=== PATIENT | male | born 1990 | race Caucasian/White ===

== ENCOUNTER 2022-10-06 15:57 | Observation (INO) ==
[2022-10-06 16:48] LABS: ABS Basophils 0.1 10^3/ul (0-0.2); ABS Lymphocytes 1.9 10^3/ul (1.0-4.8); ABS Monocytes 0.8 10^3/ul (0-0.8); ABS Neutrophils 9.9 10^3/ul (1.5-7.7); Eosinophil % 0.3 %; Hematocrit 45 % (42-52); Hemoglobin 15.1 g/dL (14.0-18.0); Lymphocyte % 15.2 %; Mean Corpuscular HGB Conc 34 g/dL (31-36); Mean Corpuscular Hemoglobin 29 pg (27-31); Mean Corpuscular Volume 87 fL (80-94); Mean Platelet Volume 6.5 fL (7.4-10.4); Platelet Count 330 10^3/uL (150-450); Red Blood Count 5.16 10^6 /uL (4.18-5.48); Red Cell Distribution Width 14 % (10-15); White Blood Count 12.7 10^3/uL (3.5-10.8)
[2022-10-06 17:50] LABS: Albumin 4.4 g/dL (3.2-5.2); Albumin/Globulin Ratio 1.5 (1-3); C Reactive Protein 109.75 mg/L (<8.01); Calcium 9.4 mg/dL (8.6-10.3); Globulin 2.9 g/dL (2-4); Potassium 3.6 mmol/L (3.5-5.0); Total Bilirubin 0.6 mg/dL (0.2-1.0); Total Protein 7.3 g/dL (6.4-8.9); eGFR CKD-EPI 119.5 (>60)
[2022-10-06 18:00] LABS: Urine Appearance Clear; Urine Bilirubin Negative (Negative); Urine Blood Negative (Negative); Urine Color Yellow; Urine Glucose Negative (Negative); Urine Ketones Trace (Negative); Urine Nitrite Negative (Negative); Urine Protein Negative (Negative); Urine Specific Gravity 1.013 (1.002-1.030); Urine Urobilinogen Negative (Negative)
[2022-10-06] MEDS ORDERED: Iohexol 350 (CONTRAST) 500 ML MDV IV ONE (18:23)
[2022-10-06] MEDS ORDERED: Lactated Ringers 1000 ml BAG 1,000 ML IV ONE (19:51)
[2022-10-06] MEDS ORDERED: Piperacillin/Tazobac ADVAN 3.375 GM in NS 0.9% 100 ml BAG 100 ML IV ONE (20:29)
[2022-10-06] MEDS ORDERED: fentaNYL 250 mcg/5 ml 50 MCG/ML 5 ml VIAL (250 MCG) ONE (22:13)
[2022-10-06] MEDS ORDERED: Rocuronium 50 mg VIAL 10 mg/ml 5 ml VIAL (50 mg) ONE (22:13)
[2022-10-06] MEDS ORDERED: Midazolam 2 mg/2 ml VIAL 1 mg/ml 2 ml VIAL (2 mg) ONE (22:13)
[2022-10-06] MEDS ORDERED: Ondansetron 4 mg VIAL 2 MG/ML 2 ml VIAL ONE (22:14)
[2022-10-06] MEDS ORDERED: Dexamethasone IV 4 MG/ML VIAL 1 ml VIAL ONE (22:14)
[2022-10-06] MEDS ORDERED: Lidocaine 2% PF 5 ML VIAL ONE (22:14)
[2022-10-06] MEDS ORDERED: Propofol 10 MG/ML 20 ML BTL ONE ×2 (22:14→23:28)
[2022-10-06] MEDS ORDERED: Sugammadex 500 MG/5 ML 5 ml VIAL IV PUSH ONE (23:37)
[2022-10-06] MEDS ORDERED: Acetaminophen IV 1 GM/100ML 1,000 MG/100 ML BAG IV PRN (23:46)
[2022-10-06] MEDS ORDERED: HYDROmorphone 1 MG/1 ML SYRINGE IV PRN (23:46)
[2022-10-06] MEDS ORDERED: fentaNYL 100 mcg/2 ml 50 MCG/ML VIAL IV PRN (23:46)
[2022-10-06] MEDS ORDERED: Naloxone 0.4 mg VIAL 0.4 mg/ml 1 ml VIAL IV PRN (23:46)
[2022-10-06] MEDS ORDERED: Ondansetron 4 mg VIAL 2 MG/ML 2 ml VIAL IV PRN (23:46)
[2022-10-07 01:40] VITALS: BP 128/77
== END 2022-10-07 01:48 | disposition home or self-care (01) ==
LOC: EDHOLD 15:57 → ED 15:57 → EDHOLD 22:39
PROVIDERS: ADMIT Surgery; ATTEND Surgery